=== PATIENT | female | born 1960 | race Caucasian/White ===

== ENCOUNTER → 2018-09-21 | Outpatient (CLI) | payer OTHER ==
[~2018-09-21] MED LIST: ASPI-496 PO; ESCI10TA PO; ESTRADIOL TD; LAMO100T PO; LEVO100T5 PO; LURA80TA PO; OLOP30.5 INH; OMEP-110 PO; PENT100C2 PO; VALA500T PO; ZALE10CA PO
== END | disposition home or self-care (01) ==
LOC: CFH 14:44
PROVIDERS: ATTEND Family Medicine
DX: R30.0 Dysuria (principal)
CPT/HCPCS: 76770

== ENCOUNTER 2019-04-25 09:24 | Inpatient (IN) | payer OTHER ==
[2019-04-25] VITALS (9 sets, daily range): BP systolic 80–138; BP diastolic 50–82
[~2019-04-25] VITALS: Ht 157.5 cm; Wt 82.2 kg
[2019-04-25] MEDS ORDERED: PANTOPRAZOLE 80 MG in SODIUM CHLORIDE 0.9% 50 ML IVPB ONE (09:42)
[2019-04-25] MEDS ORDERED: SODIUM CHLORIDE 0.9% 1,000ML IVBOLUS ONE (10:00)
[2019-04-25] MEDS ORDERED: SODIUM CHLORIDE FLUSH 10ML SYR IVF ONE (10:00)
[2019-04-25] MEDS ORDERED: DEXL60CA2 PO (10:04)
[2019-04-25] MEDS ORDERED: VENL150C PO (10:04)
[2019-04-25] MEDS ORDERED: ZOLP10TA5 PO (10:04)
[2019-04-25] MEDS ORDERED: LOSA1TAB19 PO (10:04)
[2019-04-25] MEDS ORDERED: LAMO300T2 PO (10:04)
[2019-04-25] MEDS ORDERED: GEMF600T8 PO (10:04)
[2019-04-25] MEDS ORDERED: NORE5TAB PO (10:04)
[2019-04-25] MEDS ORDERED: LURA40TA PO (10:04)
[2019-04-25] MEDS ORDERED: LEVO75TA PO (10:04)
[2019-04-25] MEDS ORDERED: METF500T17 PO (10:04)
[2019-04-25 10:17] LABS: MEAN CORPUSCULAR HEMOGLOBIN 33.3 pg (27.0-34.8); MEAN CORPUSCULAR VOLUME 100.9 fL (80-100); MEAN PLATELET VOLUME 7.6 fL (7.4-10.4); PLATELET COUNT 396 x10^3/uL (130-400); RED BLOOD COUNT 1.87 x10^6/uL (3.82-5.3); RED CELL DISTRIBUTION WIDTH 13.4 % (9.6-15.2)
[2019-04-25 10:19] LABS: ALANINE AMINOTRANSFERASE 23 U/L (12-78); ALBUMIN 3.7 g/dL (3.4-5.0); ANION GAP 11 mmol/L (5-15); CALCIUM 8.2 mg/dL (8.5-10.1); CHLORIDE 99 mmol/L (98-107); INTERNATIONAL NORMALIZED RATIO 1.01 (0.93-1.1); PROTHROMBIN TIME 10.6 Seconds (9.6-11.5)
[2019-04-25 10:21] LABS: ALKALINE PHOSPHATASE 62 U/L (45-117); BILIRUBIN,TOTAL 0.2 mg/dL (0.2-1.0); TOTAL PROTEIN 6.5 g/dL (6.4-8.2)
--- NOTE | 2019-04-25 10:22 | NUR ---
PT CAME IN WITH DAUGHTER. REPORTS BLOODY STOOLS SINCE FRIDAY. PT HAD COLONOSCOPY ON FRIDAY, REFERRED TO ER BY [facility] FOR BLEEDING.
--- NOTE | 2019-04-25 10:24 | NUR ---
LAB CALLED WITH CRITICAL RESULTS: HG 6.2, HCT 18.9. DR. JOYCE NOTIFIED, NEW ORDERS RECEIVED AND IMPLEMENTED.
--- NOTE | 2019-04-25 11:09 | NUR ---
Purple slip sent to blood bank. Blood bank sent 1 unit of packed RBCs.
[2019-04-25 11:15] LABS: BASOPHILS # (AUTO) 0.02 x10^3/uL (0-0.1); BASOPHILS % (AUTO) 0 % (0-1); EOSINOPHILS # (AUTO) 0.09 x10^3/uL (0-0.4); EOSINOPHILS % (AUTO) 1 % (1-7); LYMPHOCYTES # (AUTO) 1.15 x10^3/uL (1-3.4); LYMPHOCYTES % (AUTO) 19 % (22-44); MD SCAN; MONOCYTES # (AUTO) 0.31 x10^3/uL (0.2-0.8); MONOCYTES % (AUTO) 5 % (2-9); NEUTROPHILS # (AUTO) 4.58 x10^3/uL (1.8-6.8); NEUTROPHILS % (AUTO) 75 % (42-75)
[2019-04-25] MEDS ORDERED: OMNIPAQUE 350 MG/ML, 100ML BOTTLE ONE (11:19)
--- NOTE | 2019-04-25 11:30 | NUR ---
1 UNIT PRBCS ORDERED PER MD, CONSENT SIGNED. TYPE AND CROSS COMPLETED. 1 UNIT OF BLOOD STARTED AT 1126.
--- NOTE | 2019-04-25 12:17 | NUR ---
LUNCH RN: PT RESTING COMFORTABLY IN BED WITH FAMILY AT BEDSIDE. BLOOD TRANSFUSING, PT TOLERATING WELL. VSS. AWAITING ROOM ASSIGNMENT ON FLOOR
--- NOTE | 2019-04-25 12:29 | NUR ---
LUNCH RN: REPORT CALLED TO [facility] PT READY FOR TRANSPORT TO FLOOR. HOSPITALIST AT BEDSIDE FOR ADMIT ASSESSMENT
[2019-04-25] MEDS ORDERED: VALACYCLOVIR 500MG TABLET PO SCH (12:30)
[2019-04-25] MEDS ORDERED: ZOLPIDEM 5MG TABLET PO PRN (13:00)
[2019-04-25] MEDS ORDERED: ENALAPRILAT 1.25 MG/ML, 2ML IVPush PRN (13:00)
[2019-04-25] MEDS ORDERED: POTASSIUM CHLORIDE 20 MEQ TAB.ER.PRT PO ONE (13:00)
[2019-04-25] MEDS: ACETAMINOPHEN 325 MG TABLET PO PRN (15:15)
[2019-04-25] MEDS: MOVIPREP POWDER 1 PREP KIT PO SCH (17:43)
[2019-04-25] MEDS: PANTOPRAZOLE 80 MG in SODIUM CHLORIDE 0.9% 100 ML IV SCH (20:02)
[2019-04-25] MEDS ORDERED: LIDOCAINE-MPF 1%, 5ML ONE (20:09)
[2019-04-25] MEDS ORDERED: FENTANYL PF 100 MCG/2ML ONE (20:35)
[2019-04-25] MEDS ORDERED: NALOXONE 1 MG/ML, 2ML ONE (20:35)
[2019-04-25] MEDS ORDERED: VISIPAQUE 270 MG/ML, 150ML BOTTLE ONE (20:58)
[2019-04-25] MEDS ORDERED: VISIPAQUE 270 MG/ML, 50ML BOTTLE ONE (20:58)
[2019-04-26] VITALS: BP 118/59
[2019-04-26 00:57] VITALS: BP 130/63
[2019-04-26] MEDS: VENLAFAXINE 75 MG CAP ER PO SCH ×3 (01:02→20:56)
[2019-04-26] MEDS: GEMFIBROZIL 600 MG TABLET PO SCH ×3 (01:02→20:57)
[2019-04-26] MEDS: LAMOTRIGINE 100 MG TABLET PO SCH ×3 (01:02→20:56)
[2019-04-26 01:12] VITALS: BP 126/67
[2019-04-26 02:30] VITALS: BP 126/62
[2019-04-26] MEDS: MOVIPREP POWDER 1 PREP KIT PO SCH (05:23)
[2019-04-26] MEDS: PANTOPRAZOLE 80 MG in SODIUM CHLORIDE 0.9% 100 ML IV SCH (05:23)
[2019-04-26] MEDS: LEVOTHYROXINE 75 MCG TABLET PO SCH (05:28)
[2019-04-26 05:58] LABS: ANION GAP 8 mmol/L (5-15); CALCIUM 7.1 mg/dL (8.5-10.1); CHLORIDE 109 mmol/L (98-107); CREATININE 0.54 mg/dL (0.55-1.02)
[2019-04-26 06:26] LABS: BASOPHILS # (AUTO) 0.01 x10^3/uL (0-0.1); BASOPHILS % (AUTO) 0 % (0-1); EOSINOPHILS # (AUTO) 0.03 x10^3/uL (0-0.4); EOSINOPHILS % (AUTO) 1 % (1-7); LYMPHOCYTES # (AUTO) 1.15 x10^3/uL (1-3.4); LYMPHOCYTES % (AUTO) 19 % (22-44); MD NO; MEAN CORPUSCULAR HEMOGLOBIN 32.1 pg (27.0-34.8); MEAN CORPUSCULAR HGB CONC 33.6 g/dL (32.4-35.8); MEAN CORPUSCULAR VOLUME 95.3 fL (80-100); MEAN PLATELET VOLUME 7.9 fL (7.4-10.4); MONOCYTES # (AUTO) 0.36 x10^3/uL (0.2-0.8); MONOCYTES % (AUTO) 6 % (2-9); NEUTROPHILS # (AUTO) 4.61 x10^3/uL (1.8-6.8); NEUTROPHILS % (AUTO) 75 % (42-75); PLATELET COUNT 275 x10^3/uL (130-400); RED BLOOD COUNT 2.29 x10^6/uL (3.82-5.3); RED CELL DISTRIBUTION WIDTH 15.3 % (9.6-15.2)
[2019-04-26] MEDS: ACETAMINOPHEN 325 MG TABLET PO PRN (06:44)
[2019-04-26] MEDS: POTASSIUM CHLORIDE 20 MEQ TAB.ER.PRT PO SCH ×2 (08:17→17:26)
[2019-04-26] MEDS: NORETHINDRONE ACETATE 5 MG PO SCH (09:00)
[2019-04-26] MEDS ORDERED: LOSARTAN 50MG TABLET PO SCH (09:00)
[2019-04-26] MEDS ORDERED: HYDROCHLOROTHIAZIDE 12.5 MG CAPSULE PO SCH (09:00)
[2019-04-26] MEDS ORDERED: ZOLPIDEM 10MG TABLET PO SCH (09:00)
[2019-04-26] MEDS ORDERED: POTASSIUM PHOSPHATE 44 MEQ in SODIUM CHLORIDE 0.9% 500 ML IV ONE (09:30)
[2019-04-26] MEDS ORDERED: MAGNESIUM SULFATE PMX 2GM/50ML 50 ML IV ONE (09:30)
[2019-04-26] MEDS: LURASIDONE 20 MG TABLET PO SCH (09:39)
[2019-04-26] MEDS: ESCITALOPRAM 10MG TABLET PO SCH (09:40)
[2019-04-26] MEDS: VALACYCLOVIR 500MG TABLET PO SCH (09:40)
[2019-04-26 12:38] VITALS: BP 115/70
[2019-04-26 20:04] VITALS: BP 107/71
[2019-04-27 01:05] VITALS: BP 107/71
[2019-04-27 05:29] LABS: MEAN CORPUSCULAR HGB CONC 33.7 g/dL (32.4-35.8); MEAN PLATELET VOLUME 7.3 fL (7.4-10.4); PLATELET COUNT 320 x10^3/uL (130-400); RED BLOOD COUNT 2.38 x10^6/uL (3.82-5.3); RED CELL DISTRIBUTION WIDTH 15.7 % (9.6-15.2)
[2019-04-27 05:36] LABS: ANION GAP 5 mmol/L (5-15); CALCIUM 7.8 mg/dL (8.5-10.1); CHLORIDE 107 mmol/L (98-107)
[2019-04-27 05:49] LABS: CREATININE 0.68 mg/dL (0.55-1.02)
[2019-04-27 06:02] LABS: BASOPHILS # (AUTO) 0.01 x10^3/uL (0-0.1); BASOPHILS % (AUTO) 0 % (0-1); EOSINOPHILS # (AUTO) 0.09 x10^3/uL (0-0.4); EOSINOPHILS % (AUTO) 2 % (1-7); LYMPHOCYTES # (AUTO) 1.02 x10^3/uL (1-3.4); LYMPHOCYTES % (AUTO) 21 % (22-44); MD SCAN; MONOCYTES # (AUTO) 0.31 x10^3/uL (0.2-0.8); MONOCYTES % (AUTO) 7 % (2-9); NEUTROPHILS # (AUTO) 3.38 x10^3/uL (1.8-6.8); NEUTROPHILS % (AUTO) 70 % (42-75)
[2019-04-27] MEDS: LEVOTHYROXINE 75 MCG TABLET PO SCH (06:08)
[2019-04-27] MEDS: ACETAMINOPHEN 325 MG TABLET PO PRN ×2 (06:14→11:08)
[2019-04-27 07:09] VITALS: BP 105/59
[2019-04-27] MEDS: ESCITALOPRAM 10MG TABLET PO SCH (08:44)
[2019-04-27] MEDS: LURASIDONE 20 MG TABLET PO SCH (08:44)
[2019-04-27] MEDS: LAMOTRIGINE 100 MG TABLET PO SCH (08:44)
[2019-04-27] MEDS: VALACYCLOVIR 500MG TABLET PO SCH (08:44)
[2019-04-27] MEDS: GEMFIBROZIL 600 MG TABLET PO SCH (08:44)
[2019-04-27] MEDS: VENLAFAXINE 75 MG CAP ER PO SCH (08:44)
[2019-04-27] MEDS: NORETHINDRONE ACETATE 5 MG PO SCH (08:48)
[2019-04-27] MEDS ORDERED: POTASSIUM PHOSPHATE 22 MEQ in SODIUM CHLORIDE 0.9% 500 ML IV ONE (09:00)
[2019-04-27] MEDS ORDERED: CYANOCOBALAMIN 1,000 MCG TABLET PO SCH (09:00)
[2019-04-27] MEDS ORDERED: CYAN10005 PO (12:10)
[2019-04-27] MEDS ORDERED: DOCU100T3 PO (12:11)
== END 2019-04-27 13:37 | disposition home or self-care (01) | DRG 908 ==
LOC: ED 10:53 → EDIP 12:39 → 3NE 12:44 → CCU 19:17 → CSU 04-26 02:34 → 3NE 04-26 11:14 → DCLOUNGE 04-27 13:25
PROVIDERS: ADMIT Hospitalist; ATTEND Hospitalist
PROC: 04L53DZ Occlusion of Superior Mesenteric Artery with Intraluminal Device, Percutaneous Approach (ICD-10-PCS; principal; 2019-04-25)
PROC: B4141ZZ Fluoroscopy of Superior Mesenteric Artery using Low Osmolar Contrast (ICD-10-PCS; 2019-04-25)
PROC: 30233N1 Transfusion of Nonautologous Red Blood Cells into Peripheral Vein, Percutaneous Approach (ICD-10-PCS; 2019-04-25)
DX: K91.840 Postprocedural hemorrhage of a digestive system organ or structure following a digestive system procedure (principal); D62 Acute posthemorrhagic anemia; D75.89 Other specified diseases of blood and blood-forming organs; E03.9 Hypothyroidism, unspecified; E11.9 Type 2 diabetes mellitus without complications; E78.5 Hyperlipidemia, unspecified; E87.6 Hypokalemia; F31.9 Bipolar disorder, unspecified; I10 Essential (primary) hypertension; K21.9 Gastro-esophageal reflux disease without esophagitis; K57.30 Diverticulosis of large intestine without perforation or abscess without bleeding; Y83.8 Other surgical procedures as the cause of abnormal reaction of the patient, or of later complication, without mention of misadventure at the time of the procedure; F41.9 Anxiety disorder, unspecified; Z90.49 Acquired absence of other specified parts of digestive tract; Z86.010 Personal history of colon polyps; Z90.710 Acquired absence of both cervix and uterus; Z88.2 Allergy status to sulfonamides; Z88.8 Allergy status to other drugs, medicaments and biological substances; Z87.891 Personal history of nicotine dependence; Z79.899 Other long term (current) drug therapy; Z79.84 Long term (current) use of oral hypoglycemic drugs
CPT/HCPCS: 36246; 36415; 36430; 37244; 74178; 76937; 80048; 80053; 82607; 83735; 84100; 84443; 85018; 85025; 85610; 85730; 86850; 86900; 86923; 87081; 96365; C1894; G0378; J3010; Q9966; Q9967; C1751; C1760; C1769; C9113; J2310; J3475; J7030; J7040; P9016